=== PATIENT | female | born 1950 | race Caucasian/White ===

== ENCOUNTER 2019-05-17 20:38 | Emergency (ER) | payer OTHER, BC ==
[2019-05-17 20:56] VITALS: PULSE 88; TEMP 98.3; BMI 29.2
--- NOTE | 2019-05-17 21:13 | PDOC ---
History of Present Illness - General Chief Complaint: Bone Injury Stated Complaint: WRIST INJURY Time Seen by Provider: 05/17/19 20:57 - History of Present Illness Initial Comments: 05/17/19 21:10 68-year-old female resents for evaluation after a fall on her right upper extremity Past History - Past Medical History Allergies/Adverse Reactions: Allergies Allergy/AdvReac Type Severity Reaction Status Date / Time No Known Allergies Allergy Verified 05/17/19 20:47 Home Medications: Ambulatory Orders Albuterol Sulfate Inhaler - 2 puff IH PRN PRN 06/24/15 Cetirizine HCl [Zyrtec -] 10 mg PO PRN PRN 06/24/15 Levothyroxine [Synthroid -] 75 mcg PO DAILY 06/24/15 Metoprolol Tartrate [Lopressor -] 50 mg PO DAILY 06/24/15 Avoid Nsaids 06/25/15 Anemia: No Asthma: Yes Cancer: No Cardiac Disorders: No CVA: No COPD: No Dementia: No Diabetes: No GI Disorders: No Disorders: No HTN: Yes Hypercholesterolemia: Yes Liver Disease: No Seizures: No Thyroid Disease: No - Surgical History Abdominal Surgery: No Appendectomy: No Cardiac Surgery: No Cholecystectomy: No Lung Surgery: No Neurologic Surgery: No Orthopedic Surgery: No - Suicide/Smoking/Psychosocial Hx Smoking History: Never smoked Have you smoked in the past 12 months: No Information on smoking cessation initiated: No Hx Alcohol Use: No Drug/Substance Use Hx: No Substance Use Type: None Hx Substance Use Treatment: No Review of Systems - Review of Systems Musculoskeletal: Yes: Joint Pain *Physical Exam - Vital Signs Last Vital Signs Temp Pulse Resp BP Pulse Ox 98.3 F 88 19 177/88 H 100 05/17/19 20:44 05/17/19 20:44 05/17/19 20:44 05/17/19 20:44 05/17/19 20:44 - Physical Exam Comments: 05/17/19 21:11 Right wrist skin color and temperature are normal range of motion is limited tenderness over the DRUJ. No snuffbox tenderness no gross sensory motor deficits neurovascular intact. ED Treatment Course - RADIOLOGY Radiology Studies Ordered: Category Date Time Status WRIST- RIGHT [RAD] Stat Radiology 05/17/19 20:48 Taken Medical Decision Making - Medical Decision Making 05/17/19 21:11 [email or web address] *DC/Admit/Observation/Transfer Diagnosis at time of Disposition: Sprain of wrist, right - Discharge Dispostion Disposition: HOME Condition at time of disposition: Stable Decision to Admit order: No - Referrals Referrals: Eladio Thayer [Primary Care Provider] - Kenton Curry DO [Staff Physician] - - Patient Instructions Printed Discharge Instructions: Wrist Sprain, DI for Wrist Sprain Additional Instructions: Please with a splint for comfort. Return to the emergency room for worsening symptoms. Tylenol as directed for pain. Follow-up with orthopedics in 1-2 days without fail for further evaluation and treatment options. - Post Discharge Activity
[2019-05-17 21:22] VITALS: BP 155/71
== END 2019-05-17 21:23 | disposition home or self-care (01) ==
LOC: JERFT 20:38
PROC: 2W3CX1Z Immobilization of Right Lower Arm using Splint (ICD-10-PCS; principal; 2019-05-17)
DX: S63.501A Unspecified sprain of right wrist, initial encounter (principal); W18.39XA Other fall on same level, initial encounter; Y93.89 Activity, other specified; Y92.89 Other specified places as the place of occurrence of the external cause
CPT/HCPCS: 29126; 73110-TC-RT-FY; 99282-25